=== PATIENT | male | born 1975 | race Caucasian/White ===

== ENCOUNTER 2023-02-08 18:19 | Emergency (ER) | payer SELFPAY ==
[~2023-02-08] VITALS: Ht 172.7 cm; Wt 80.0 kg
[2023-02-08 18:22] VITALS: TEMP 98.6; O2SAT 95
[2023-02-08] MEDS ORDERED: LIDOCAINE 5% PATCH TOP SCH (19:00)
[2023-02-08] MEDS ORDERED: KETOROLAC 60MG/2ML VIAL IM ONE (19:00)
[2023-02-08 19:29] VITALS: BP 110/70; PULSE 103; RESP 18
== END 2023-02-08 21:00 | disposition home or self-care (01) ==
LOC: ER 18:19
DX: M54.2 Cervicalgia (principal); F10.129 Alcohol abuse with intoxication, unspecified; Y90.0 Blood alcohol level of less than 20 mg/100 ml
CPT/HCPCS: 99283; 96372; J1885

== ENCOUNTER 2023-06-16 17:58 | Emergency (ER) | payer SELFPAY ==
[~2023-06-16] VITALS: Ht 172.7 cm; Wt 68.0 kg
[2023-06-16 18:06] VITALS: BP 112/69; PULSE 86; RESP 16; TEMP 98.4; O2SAT 99
[2023-06-16] MEDS ORDERED: HYDR-3992 MT (20:44)
== END 2023-06-16 18:29 | disposition left against medical advice (07) ==
LOC: ER 17:58
DX: F10.129 Alcohol abuse with intoxication, unspecified (principal); Z53.21 Procedure and treatment not carried out due to patient leaving prior to being seen by health care provider
CPT/HCPCS: 99281

== ENCOUNTER 2023-06-16 20:13 | Emergency (ER) | payer SELFPAY ==
[~2023-06-16] VITALS: Ht 175.3 cm; Wt 81.0 kg
[2023-06-16 20:16] VITALS: BP 125/78; O2SAT 98
[2023-06-16] MEDS ORDERED: HYDR-3992 MT (20:44)
[2023-06-16 21:07] VITALS: PULSE 97; RESP 16; TEMP 98.6
== END 2023-06-16 21:07 | disposition home or self-care (01) ==
LOC: ER 20:13
DX: F10.10 Alcohol abuse, uncomplicated (principal); Y90.9 Presence of alcohol in blood, level not specified
CPT/HCPCS: 99283

== ENCOUNTER 2023-07-22 21:35 | Emergency (ER) | payer SELFPAY ==
[~2023-07-22] VITALS: Ht 175.3 cm; Wt 82.0 kg
[~2023-07-22 21:35] MED LIST: HYDR-3992 MT
[2023-07-22 21:36] VITALS: BP 130/90; PULSE 70; RESP 18; TEMP 98.6; O2SAT 98
== END 2023-07-23 00:56 | disposition left against medical advice (07) ==
LOC: ER 21:35
DX: F10.129 Alcohol abuse with intoxication, unspecified (principal); Z53.21 Procedure and treatment not carried out due to patient leaving prior to being seen by health care provider; Y90.9 Presence of alcohol in blood, level not specified
CPT/HCPCS: 99281